=== PATIENT | female | born 1955 | race Caucasian/White ===

== ENCOUNTER 2021-08-01 09:26 | Observation (INO) ==
[2021-08-01] MEDS ORDERED: MECLIZINE 25 MG TABLET PO STA (12:22)
[2021-08-01] MEDS ORDERED: SODIUM CHLORIDE 0.9% 1,000 ML IV STA (12:22)
[2021-08-01] MEDS ORDERED: ONDANSETRON 4 MG/2 ML VIAL IV STA (12:48)
[2021-08-01 12:54] LABS: Basophils # 0.1 10*3/uL (0.0-0.2); Basophils % 0.5 % (0.0-0.8); Eosinophils # 0.2 10*3/uL (0.0-0.87); Eosinophils % 2.2 % (0.00-10.9); Hematocrit 46.5 VOL% (35.7-47.0); Hemoglobin 15.5 GM/DL (12.0-16.0); Immature Granulocytes % 0.8 %; Immature Granulocytes Absolute 0.09 #; Lymphocytes # 4.7 10*3/uL (1.4-4.0); Lymphocytes % 42.3 % (21.3-54.2); Mean Corpuscular HGB Conc 33.3 GM/DL (32-36); Mean Corpuscular Volume 86.8 FL (87-102); Mean Platelet Volume 9.2 FL (9.6-12.0); Monocytes % 6.7 % (1.7-12.7); Neutrophils % 47.5 % (38.7-73.9); Platelet Count 327 T/CUMM (130-400); Red Blood Count 5.36 MC/CUMM (3.8-5.5); White Blood Count 11.1 T/CUMM (4-12)
[2021-08-01 13:21] LABS: Albumin 3.7 G/DL (3.4-5.0); Bilirubin,Total 0.4 MG/DL (0.20-1.00); Calcium 9.9 MG/DL (8.5-10.1); Osmolality,Calculated 275.7 MOS/KG (273-304); Potassium 3.9 MMOL/L (3.5-5.1); Total Protein 8.5 G/DL (6.4-8.2)
[2021-08-01] MEDS ORDERED: GLUCAGON 1 MG VIAL IM PRN (15:07)
[2021-08-01] MEDS ORDERED: ONDANSETRON 4 MG/2 ML VIAL IV PRN (15:07)
[2021-08-01] MEDS ORDERED: LEVOFLOXACIN INJ 500 MG/100 ML PREMIX IV SCH (15:07)
[2021-08-01] MEDS ORDERED: MECLIZINE 25 MG TABLET PO PRN (15:07)
[2021-08-01] MEDS ORDERED: DEXTROSE 50% 25 GM/50 ML SYRINGE IV PRN (15:13)
[2021-08-01] MEDS: ACETAMINOPHEN 325 MG TABLET PO PRN ×2 (15:33→21:12)
[2021-08-01] MEDS ORDERED: methylPREDNISolone SOD SUC 40 MG/1 ML VIAL IV SCH (20:00)
[2021-08-01] MEDS ORDERED: HydrOXYzine PAMOATE 25 MG CAPSULE PO ONE (21:00)
[2021-08-01] MEDS ORDERED: DOCUSATE SODIUM 100 MG CAPSULE PO SCH (21:00)
[2021-08-02 05:49] LABS: Basophils % 0.3 % (0.0-0.8); Hematocrit 44.1 VOL% (35.7-47.0); Hemoglobin 14.3 GM/DL (12.0-16.0); Immature Granulocytes % 0.7 %; Immature Granulocytes Absolute 0.05 #; Lymphocytes # 1.7 10*3/uL (1.4-4.0); Lymphocytes % 22.7 % (21.3-54.2); Mean Corpuscular HGB Conc 32.4 GM/DL (32-36); Mean Platelet Volume 9.6 FL (9.6-12.0); Monocytes % 0.8 % (1.7-12.7); Neutrophils % 75.5 % (38.7-73.9); Platelet Count 294 T/CUMM (130-400); Red Blood Count 5.07 MC/CUMM (3.8-5.5); Red Cell Distribution Width 12.8 % (9.3-17.3); White Blood Count 7.7 T/CUMM (4-12)
[2021-08-02 06:15] LABS: Calcium 9.4 MG/DL (8.5-10.1); Osmolality,Calculated 281.8 MOS/KG (273-304); Potassium 4.1 MMOL/L (3.5-5.1)
[2021-08-02] MEDS ORDERED: hydroCHLOROthiazide 12.5 MG CAPSULE PO SCH (09:00)
[2021-08-02] MEDS ORDERED: PANTOPRAZOLE 40 MG TABLET PO SCH (09:00)
[2021-08-02] MEDS ORDERED: metFORMIN 500 MG TABLET PO SCH (09:00)
[2021-08-02 10:29] VITALS: BP 116/64
[2021-08-02] MEDS ORDERED: ROSUVASTATIN 10 MG TABLET PO SCH (21:00)
== END 2021-08-02 11:00 | disposition home or self-care (01) ==
LOC: N.ED 09:26 → N.EDINP 09:26 → N.2E 15:06
PROVIDERS: ADMIT Family Medicine; ATTEND Family Medicine